=== PATIENT | male | born 1965 | race Caucasian/White ===

== ENCOUNTER 2021-11-09 14:07 | Emergency (ER) | payer MEDICAID ==
[~2021-11-09] VITALS: Ht 167.6 cm; Wt 102.1 kg
--- NOTE | 2021-11-09 14:15 | NUR ---
BIBS THIS 56YO MALE PATIENT, AMBULATORY, WITH CC OF LEFT FLANK PAIN. PLACED IN RM 12. VITALS CHECKED. URINE SPECIMEN SENT TO LAB.
[2021-11-09] MEDS ORDERED: CYCL10TA9 PO (16:20)
[2021-11-09] MEDS ORDERED: IBUP-1955 PO (16:20)
[2021-11-09] MEDS ORDERED: IBUPROFEN 600 MG TABLET PO ONE (16:30)
[2021-11-09 16:45] VITALS: BP 139/98
== END 2021-11-09 16:46 | disposition home or self-care (01) ==
LOC: ER 14:07
DX: R07.81 Pleurodynia (principal); Z88.6 Allergy status to analgesic agent; Z88.5 Allergy status to narcotic agent
CPT/HCPCS: 71100-TC

== ENCOUNTER 2023-04-12 20:24 | Emergency (ER) | payer MEDICAID ==
[~2023-04-12] VITALS: Ht 170.2 cm; Wt 98.9 kg
[~2023-04-12 20:24] MED LIST: CYCL10TA9 PO; IBUP-1955 PO
[2023-04-12 22:04] LABS: BASOPHILS # (AUTO) 0.1 K/uL (0.0-0.2); BASOPHILS % (AUTO) 0.5 % (0.0-2.0); EOSINOPHILS # (AUTO) 0.1 K/uL (0.0-0.7); HEMATOCRIT 41 % (39-51); LYMPHOCYTES # (AUTO) 2.9 K/uL (0.8-4.8); LYMPHOCYTES % (AUTO) 22.6 % (20.0-44.0); MEAN CORPUSCULAR HEMOGLOBIN 32 PG (26.0-33.0); MEAN CORPUSCULAR HGB CONC 34 g/dl (31.0-36.0); MEAN CORPUSCULAR VOLUME 95 fL (80-96); MONOCYTES # (AUTO) 1.4 K/uL (0.1-1.30); MONOCYTES % (AUTO) 11.2 % (2.0-12.0); NEUTROPHILS # (AUTO) 8.3 K/uL (1.8-8.9); NEUTROPHILS % (AUTO) 64.7 % (43.0-81.0); PLATELET COUNT (AUTO) 192 K/uL (150-450); RED BLOOD CELL COUNT(AUTO) 4.36 MIL/uL (4.5-6.0); RED CELL DISTRIBUTION WIDTH 13.1 % (11.5-15.0); WHITE BLOOD COUNT (AUTO) 12.9 K/uL (4.3-11.0)
[2023-04-12 22:14] LABS: APPEARANCE,URINE CLEAR (CLEAR); BILIRUBIN,URINE NEGATIVE (NEGATIVE); BLOOD, URINE NEGATIVE Ery/uL (NEGATIVE); COLOR,URINE YELLOW (YELLOW); KETONES,URINE TRACE mg/dL (NEGATIVE); LEUKOCYTE ESTERASE ,URINE NEGATIVE (NEGATIVE); NITRITE, URINE NEGATIVE (NEGATIVE); PROTEIN,URINE TRACE mg/dl (NEGATIVE); UGLUCOSE NEGATIVE (NEGATIVE)
[2023-04-12 22:17] LABS: ADD URINE CULTURE NO; BACTERIA,URINE None seen /HPF (None Seen); MUCUS,URINE Few /LPF (None Seen); RBC,URINE 0-2 /HPF (0-2); WBC,URINE 0-2 /HPF (0-3)
[2023-04-12 22:20] LABS: ALANINE AMINOTRANSFERASE 44 U/L (12-78); ALBUMIN 3.5 g/dL (3.4-5.0); ALKALINE PHOSPHATASE 76 U/L (46-116); ASPARTATE AMINOTRANSFERASE 18 U/L (15-37); BILIRUBIN,DIRECT 0.1 mg/dL (0.0-0.2); BILIRUBIN,TOTAL 0.3 mg/dL (0.2-1.0); CALCIUM, SERUM 9.2 mg/dL (8.5-10.1); CARBON DIOXIDE 25 mmol/L (21-32); CHLORIDE 106 mmol/L (98-107); CREATININE 0.9 mg/dL (0.6-1.3); GLUCOSE 104 mg/dL (74-106); LIPASE 111 U/L (73-393); POTASSIUM 3.4 mmol/L (3.5-5.1); SODIUM SERUM 140 mmol/L (136-145); TOTAL PROTEIN, SERUM 6.8 g/dL (6.4-8.2); UREA NITROGEN, BLOOD 15 mg/dL (7-18)
[2023-04-12] MEDS ORDERED: AMOX-430 PO (22:46)
[2023-04-12] MEDS ORDERED: ONDA4TAB5 PO (22:46)
[2023-04-12 23:06] VITALS: BP 140/73; TEMP 98.4; O2SAT 97
== END 2023-04-12 23:15 | disposition home or self-care (01) ==
LOC: ER 20:27
DX: K57.32 Diverticulitis of large intestine without perforation or abscess without bleeding (principal); Z79.899 Other long term (current) drug therapy; Z88.5 Allergy status to narcotic agent; Z88.1 Allergy status to other antibiotic agents
CPT/HCPCS: 36415; 80048-TC; 80076-TC; 81001; 83690-TC; 84484-TC; 85025-TC

== ENCOUNTER 2023-10-28 17:03 | Emergency (ER) | payer MEDICAID, OTHER ==
[~2023-10-28] VITALS: Ht 167.6 cm; Wt 100.2 kg
[~2023-10-28 17:03] MED LIST changes: +AMOX-430 PO; +ONDA4TAB5 PO
[2023-10-28 17:51] LABS: BASOPHILS # (AUTO) 0.1 K/uL (0.0-0.2); BASOPHILS % (AUTO) 0.9 % (0.0-2.0); EOSINOPHILS # (AUTO) 0.1 K/uL (0.0-0.7); EOSINOPHILS % (AUTO) 1.4 % (0.0-6.0); HEMATOCRIT 44 % (39-51); HEMOGLOBIN 15.3 g/dL (13.5-17.5); LYMPHOCYTES # (AUTO) 2.5 K/uL (0.8-4.8); LYMPHOCYTES % (AUTO) 28.8 % (20.0-44.0); MEAN CORPUSCULAR HEMOGLOBIN 33 PG (26.0-33.0); MEAN CORPUSCULAR HGB CONC 35 g/dl (31.0-36.0); MEAN CORPUSCULAR VOLUME 93 fL (80-96); MONOCYTES # (AUTO) 0.7 K/uL (0.1-1.30); MONOCYTES % (AUTO) 8.6 % (2.0-12.0); NEUTROPHILS # (AUTO) 5.2 K/uL (1.8-8.9); NEUTROPHILS % (AUTO) 60.3 % (43.0-81.0); PLATELET COUNT (AUTO) 210 K/uL (150-450); RED BLOOD CELL COUNT(AUTO) 4.71 MIL/uL (4.5-6.0); RED CELL DISTRIBUTION WIDTH 12.8 % (11.5-15.0); WHITE BLOOD COUNT (AUTO) 8.7 K/uL (4.3-11.0)
[2023-10-28] MEDS ORDERED: ASPIRIN 81 MG TAB.CHEW ONE (18:04)
[2023-10-28 18:05] LABS: CALCIUM, SERUM 9.6 mg/dL (8.5-10.1); POTASSIUM 3.5 mmol/L (3.5-5.1)
[2023-10-28] MEDS: ASPIRIN 81 MG TAB.CHEW PO ONE (18:08)
[2023-10-28] MEDS ORDERED: MAG HYDROX/AL HYDROX/SIMETH 30 ML UDC ONE (18:58)
[2023-10-28] MEDS ORDERED: LIDOCAINE VISCOUS 2% UD 15 ML UDC ONE (18:58)
[2023-10-28] MEDS ORDERED: FAMOTIDINE/PF INJ 20 MG/2 ML VIAL IV ONE (18:59)
[2023-10-28] MEDS ORDERED: KETOROLAC TROMETHAMINE INJ 30 MG/ML VIAL ONE (18:59)
[2023-10-28] MEDS: LIDOCAINE VISCOUS 2% UD 15 ML UDC MM ONE (19:05)
[2023-10-28] MEDS: KETOROLAC TROMETHAMINE INJ 30 MG/ML VIAL IV ONE (19:05)
[2023-10-28] MEDS: MAG HYDROX/AL HYDROX/SIMETH 30 ML UDC PO ONE (19:05)
[2023-10-28] MEDS: FAMOTIDINE/PF INJ 20 MG/2 ML VIAL IV ONE (19:05)
[2023-10-28] MEDS ORDERED: PANT40TA2 PO (20:32)
[2023-10-28 20:40] VITALS: BP 134/86; TEMP 98; O2SAT 99
== END 2023-10-28 20:41 | disposition home or self-care (01) ==
LOC: ER 17:24
DX: R07.89 Other chest pain (principal); R06.02 Shortness of breath; I10 Essential (primary) hypertension; Z88.8 Allergy status to other drugs, medicaments and biological substances
CPT/HCPCS: 99285; 96374; 71045; 96375; 93005 ×3; 85025; 80048; 36415; 84484 ×2; J3490; J1885